=== PATIENT | female | born 1980 | race Caucasian/White ===

== ENCOUNTER 2016-08-07 21:57 | Emergency (ER) | payer SELFPAY ==
[~2016-08-07] VITALS: Ht 170.2 cm; Wt 67.9 kg
[~2016-08-07 21:57] MED LIST: INSPIREASE DRUG1 EA; OMEP20TA PO; VENTAER INH; ZITHTAB PO
[2016-08-07 22:01] VITALS: BP 115/83; PULSE 84; RESP 16; TEMP 97.8; O2SAT 99
[2016-08-07 22:07] VITALS: BP 115/83; PULSE 84; RESP 18; TEMP 97.8; O2SAT 99
[2016-08-07] MEDS ORDERED: MAGICPED SWISH-SWAL ×2 (22:30→22:35)
[2016-08-07] MEDS ORDERED: OMEP20TA PO ×2 (22:30→22:35)
--- NOTE | 2016-08-07 22:41 | PD ---
HPI Chief Complaint: ENT Complaint Time Seen by Provider: 22:30 Travel History International Travel<30 days: No Contact w/Intl Traveler<30days: No Traveled to known affect area: No History of Present Illness HPI 35-year-old female presents to the emergency room for evaluation of congestion, sore throat, bilateral ear pain, nonproductive cough for the past one month. What brought her in today was worsening sore throat. Patient states she has also felt tired and is concerned that she may have mononucleosis. Reports her symptoms feel like her allergies but bcyn-dwl-tecbzxh medications such as Tylenol severe cold and flu and Xyzal are not helping. She reports feeling feverish but has not actually taken her temperature. She also reports since stopping her omeprazole, she has had increased reflux and occasionally vomits after eating. No hematemesis. She denies possibility of . PFSH Past Medical History Depression: Yes Diminished Hearing: No GERD: Yes Hypertension: Yes Immunizations Current: Yes ?: Not LMP: 07-19-16 : 1 Miscarriage: 1 Social History Alcohol Use: Yes (Social) Tobacco Use: No Substance Use: No Allergies-Medications (Allergen,Severity, Reaction): Uncoded Allergies: IVORY SOAP (Allergy, Intermediate, Rash, 02/20/16) Reported Meds & Prescriptions Reported Meds & Active Scripts Active Reported Omeprazole 20 Mg Tab 20 Mg PO DAILY Review of Systems Except as stated in HPI: all other systems reviewed are Neg Physical Exam Narrative GENERAL: Well-nourished, well-developed female in no acute distress. Afebrile. Ambulatory. SKIN: Warm and dry. HEAD: Normocephalic. EYES: No scleral icterus. No injection or drainage. ENT: Mucosa pink and moist. Mild erythema without exudates. No uvular edema. No uvular, palatal, or tonsillar deviation. Airway patent. Nasal turbinates appear normal without nasal blood, purulent drainage or septal hematoma. EARS: Bilateral pinnae and external canals appear within normal limits. Bilateral tympanic membranes without erythema, dullness or perforation. NECK: Supple, trachea midline. No JVD or lymphadenopathy. CARDIOVASCULAR: Regular rate and rhythm without murmurs, gallops, or rubs. RESPIRATORY: Breath sounds equal bilaterally. No accessory muscle use. No crackles, rales, wheezes, or rhonchi. Data Data Last Documented VS Vital Signs Date Time Temp Pulse Resp B/P Pulse Ox O2 Delivery O2 Flow Rate FiO2 08/07/16 22:07 97.8 84 18 115/83 99 MDM Medical Decision Making Medical Screen Exam Complete: Yes Emergency Medical Condition: Yes Medical Record Reviewed: Yes Differential Diagnosis Allergies versus Hooks versus upper respiratory infection versus bacterial infection Narrative Course 35-year-old female presents to the emergency room for evaluation of nonproductive cough, congestion, sore throat, bilateral ear pain, and fatigue for the past one month. States symptoms really started one year ago. Patient states they feel like allergies but are not improving with bzvf-cdm-covoezr medications. Physical exam is reassuring. No evidence of bacterial infection in the ears, nose, throat, sinuses, or lungs. No indication for antibiotics at this time. She'll be discharged with refill of her omeprazole and prescription for Magic mouthwash for sore throat relief. She was warned that she may be developing a viral syndrome and to expect to get worse before getting better over the next 10 days. Patient told to follow up with the primary care physician and return for worsening symptoms. She understands and agrees to plan. Diagnosis Primary Impression: Environmental allergies Additional Impression: Viral syndrome Referrals: Primary Care Physician Patient Instructions: Allergies (ED), General Instructions, Viral Syndrome (ED) Additional Instructions: Rest and drink plenty of fluids. Continue zqsm-kos-[id number] medication for symptoms. Use Magic mouthwash as needed for sore throat. Follow-up with a primary care physician. Return to the emergency room for worsening symptoms. Med/Other Pt SpecificInfo: Prescription(s) given Scripts Xsyahzbbvviupbf-Iuwemtthw-Tvm-Alum-Simeth Liq (Magic Mouthwash Pediatric/Adult Liq)60 Ml Susp5 Ml SWISH-SWAL ACHS #60 ML Ref 0 Each 5mL contains: Diphenydramine 4.5mg, Viscous Lidocaine 2% 10mg, Maalox Advanced Regular Strength 2.7ml Prov:Raman Mejía MD 08/07/16 Omeprazole 20 Mg Tab20 Mg PO DAILY #30 TAB Ref 0 Prov:Raman Mejía MD 08/07/16 Disposition: 01 DISCHARGE HOME Condition: Stable Ashleigh Wright August 07, 2016 22:41
== END 2016-08-07 22:48 | disposition home or self-care (01) ==
LOC: PHEFT 21:57
DX: B34.9 Viral infection, unspecified (principal); J30.2 Other seasonal allergic rhinitis; I10 Essential (primary) hypertension; K21.9 Gastro-esophageal reflux disease without esophagitis
CPT/HCPCS: 99282

== ENCOUNTER 2016-09-10 12:44 | Emergency (ER) | payer SELFPAY ==
[~2016-09-10] VITALS: Ht 170.2 cm; Wt 63.0 kg
[~2016-09-10 12:44] MED LIST changes: -INSPIREASE DRUG1 EA; +MAGICPED SWISH-SWAL; -VENTAER INH; -ZITHTAB PO
[2016-09-10 12:47] VITALS: BP 129/73; PULSE 80; RESP 16; TEMP 98.1; O2SAT 99
--- NOTE | 2016-09-10 13:11 | PD ---
HPI Chief Complaint: ENT Complaint Time Seen by Provider: 12:55 Travel History International Travel<30 days: No Contact w/Intl Traveler<30days: No Traveled to known affect area: No History of Present Illness HPI This is a 35 year old female who presents for evaluation of sore throat. Symptoms initially started 3 months ago. It hurts to swallow. She does have occasional cough and congestion as well. Symptoms have persisted which prompted evaluation today. She has tried frcm-guc-gwtmden NSAIDs, Tylenol, cough and cold medications, antihistamines and none of them seem to help. She does report a history of acid reflux, as reflux symptoms including a burning sensation particularly after eating and worse when lying down. She was on omeprazole for over a year however 6 months ago she lost her insurance and she has not been on omeprazole since then. The omeprazole did help significantly with rest and reflux symptoms. She has no other complaints at this time. PFSH Past Medical History Depression: Yes Diminished Hearing: No GERD: Yes Hypertension: Yes Immunizations Current: Yes : 1 Miscarriage: 1 Social History Alcohol Use: Yes (Social) Tobacco Use: No Substance Use: No Allergies-Medications (Allergen,Severity, Reaction): Uncoded Allergies: IVORY SOAP (Allergy, Intermediate, Rash, 02/20/16) Reported Meds & Prescriptions Reported Meds & Active Scripts Active Omeprazole 20 Mg Tab 20 Mg PO DAILY Magic Mouthwash Pediatric/Adult Liq (Lidocaine/Diphenhydr/Alum/Mg/Simeth) 60 Ml Susp 5 Ml SWISH-SWAL ACHS Each 5mL contains: Diphenydramine 4.5mg, Viscous Lidocaine 2% 10mg, Maalox Advanced Regular Strength 2.7ml Omeprazole 20 Mg Tab 20 Mg PO DAILY Review of Systems Except as stated in HPI: all other systems reviewed are Neg Physical Exam Narrative GENERAL: Well-developed well-nourished female in no acute distress SKIN: Warm and dry. HEAD: Atraumatic. Normocephalic. EYES: Pupils equal and round. No scleral icterus. No injection or drainage. ENT: No nasal bleeding or discharge. Mucous membranes pink and moist. No oral pharyngeal erythema or exudate. NECK: Trachea midline. No JVD. No lymphadenopathy CARDIOVASCULAR: Regular rate and rhythm. No murmur appreciated. RESPIRATORY: No accessory muscle use. Clear to auscultation. Breath sounds equal bilaterally. GASTROINTESTINAL: Abdomen soft, non-tender, nondistended. Hepatic and splenic margins not palpable. Data Data Last Documented VS Vital Signs Date Time Temp Pulse Resp B/P Pulse Ox O2 Delivery O2 Flow Rate FiO2 09/10/16 12:47 98.1 80 16 129/73 99 Room Air Orders Group A Rapid Strep Screen (09/10/16 13:06) Pantoprazole (Protonix) (09/10/16 13:15) Strep Culture (Group A) (09/10/16 13:10) MDM Medical Decision Making Medical Screen Exam Complete: Yes Emergency Medical Condition: Yes Medical Record Reviewed: Yes Differential Diagnosis Pharyngitis, tonsillitis, peritonsillar abscess, infectious mononucleosis, herpangina, GERD Narrative Course 35-year-old female with history of acid reflux presents after having run out of her omeprazole 6 months ago secondary to loss of insurance. The past 3 months she has been experiencing a sore throat as well as worsened reflux symptoms. Physical examination reveals no evidence of infectious process and rapid strep screen was negative. I suspect her sore throat is secondary to GERD. She does report that with omeprazole use her symptoms are very well controlled. She will therefore be started on omeprazole, recommend outpatient follow-up with ENT for laryngoscopy, [employer] for endoscopy if symptoms persist. She is agreeable with this plan. Diagnosis Primary Impression: GERD (gastroesophageal reflux disease) Qualified Code: K21.9 - Gastroesophageal reflux disease, esophagitis presence not specified Additional Impression: Pharyngitis Qualified Code: J02.9 - Pharyngitis, unspecified etiology Referrals: Ear / Nose / Throat Specialist Rn Clinical Primary Care Physician Additional Instructions: Medication as prescribed. Follow-up with primary care physician. If symptoms persist outpatient referral to [employer], ENT specialist. Med/Other Pt SpecificInfo: Prescription(s) given Scripts Omeprazole 20 Mg Tab20 Mg PO DAILY #90 TAB Ref 0 Prov:Ifeanyi Meadows MD 09/10/16 Disposition: 01 DISCHARGE HOME Condition: Stable Heriberto Benitez Sep 10, 2016 13:11
[2016-09-10] MEDS ORDERED: OMEP20TA PO (13:12)
[2016-09-10] MEDS ORDERED: PANTOPRAZOLE SOD 20 MG DELAYED RELEASE TAB PO ONE (13:15)
== END 2016-09-10 14:08 | disposition home or self-care (01) ==
LOC: NEPK 12:44
DX: K21.9 Gastro-esophageal reflux disease without esophagitis (principal); J02.9 Acute pharyngitis, unspecified
CPT/HCPCS: 87081; 87880; 99283